=== PATIENT | male | born 1990 | race Caucasian/White ===

== ENCOUNTER 2019-11-20 11:58 | Day surgery (SDC) | payer OTHER ==
[2019-11-16 10:41] LABS: BASOPHILS % (AUTO) 0.3 % (0-1); EOSINOPHILS # (AUTO) 0.1 X10'3 (0-0.9); EOSINOPHILS % (AUTO) 1.2 % (0-6); LYMPHOCYTES # (AUTO) 1.9 X10'3 (1.1-4.8); MEAN CORPUSCULAR HEMOGLOBIN 29.4 PG (27.0-31.0); MEAN CORPUSCULAR HGB CONC 34.8 g/dL (33.0-36.5); MEAN CORPUSCULAR VOLUME 84.6 FL (78-98); MEAN PLATELET VOLUME 6.5 FL (7.4-10.4); MONOCYTES # (AUTO) 1.5 X10'3 (0-0.9); MONOCYTES % (AUTO) 14.5 % (2-12); NEUTROPHILS # (AUTO) 6.6 X10'3 (1.8-7.7); PRE OP HEMATOCRIT 30.4 % (42.0-52.0); PRE OP PLATELET COUNT 450 X10'3 (140-440); RED CELL DISTRIBUTION WIDTH 12.5 % (11.5-14.5)
[2019-11-16 10:43] LABS: PRE OP HEMOGLOBIN 10.6 g/dL (14.0-17.9)
[2019-11-16 10:54] LABS: ALBUMIN 3.1 G/DL (3.4-5.0); ALBUMIN/GLOBULIN RATIO 0.7 (1.1-1.5); ALKALINE PHOSPHATASE 65 IU/L (46-116); BLOOD UREA NITROGEN 15 MG/DL (7-18); CALCIUM 8.7 MG/DL (8.5-10.1); CHLORIDE 97 MMOL/L (99-107); CREATININE 0.94 MG/DL (0.60-1.10); PRE OP ANION GAP 10 (8-16); PRE OP BILIRUB, TOTAL 1.5 MG/DL (0.0-1.0); PRE OP GLUCOSE 110 MG/DL (70-104); PRE OP POTASSIUM 3.8 MMOL/L (3.4-5.1); PRE OP SODIUM 133 MMOL/L (135-145); TOTAL PROTEIN 7.6 G/DL (6.4-8.2); eGFR > 90 ML/MIN
[2019-11-16 10:56] LABS: PRE OP ALT 119 U/L (30-65); PRE OP AST 141 U/L (10-37)
[~2019-11-20] VITALS: Ht 182.9 cm; Wt 99.8 kg
[2019-11-20] VITALS (12 sets, daily range): BP systolic 114–135; BP diastolic 63–81
[~2019-11-20 11:58] MED LIST: ACET-2119 PO; HYDR-4383 PO; IBUP-1984 PO; ceFAZolin 2gm in dextrose, iso 50 ML IV ONE; famotidine 20mg tablet PO ONE; ringers solution, lacted 1,000 ML IV SCH
[2019-11-20] MEDS ORDERED: LIDOcaine 1% (10mg/ml) 2ml vial ONE (12:13)
[2019-11-20] MEDS ORDERED: sevoflurane 250ml liquid IH ONE (13:52)
[2019-11-20] MEDS ORDERED: cloNIDine hcl/PF 100mcg/ml inj ONE (13:56)
[2019-11-20] MEDS ORDERED: BUPIVAcaine/PF 2.5 mg/ml (0.25%) 30ml vial ONE (13:59)
[2019-11-20] MEDS ORDERED: midazolam 2 mg/2 ml injection ONE (14:18)
[2019-11-20] MEDS ORDERED: fentaNYL /PF 50mcg/ml 5ml ampule ONE (14:26)
[2019-11-20] MEDS ORDERED: dexamethasone sod phosphate 4mg/ml inj. ONE ×2 (14:28)
[2019-11-20] MEDS ORDERED: LIDOcaine 2% (20mg/ml) 5ml vial ONE (14:28)
[2019-11-20] MEDS ORDERED: ROPIVAcaine 0.5% (5mg/ml) 30ml vial ONE (14:28)
[2019-11-20] MEDS ORDERED: ondansetron/PF 4mg/2ml inj ONE (14:28)
[2019-11-20] MEDS ORDERED: propofol inj 20 ML IV ONE (14:28)
[2019-11-20] MEDS ORDERED: ringers solution, lacted 1,000 ML IV SCH (14:41)
[2019-11-20] MEDS ORDERED: morphine 2 MG/ML inj. syringe IV PRN (14:45)
[2019-11-20] MEDS ORDERED: labetalol 20mg/4ml (5mg/ml) syringe IV PRN (14:45)
[2019-11-20] MEDS ORDERED: meperidine/PF 25mg/ml syringe IV PRN ×3 (14:45)
[2019-11-20] MEDS ORDERED: acetaminophen 1,000mg/100ml IV 100 ML IV PRN (14:45)
[2019-11-20] MEDS ORDERED: ketorolac trometh. 30mg/ml inj. IV ONE (14:45)
[2019-11-20] MEDS ORDERED: proCHLORperazine 10 MG/2 ml inj IV PRN (14:45)
[2019-11-20] MEDS ORDERED: hydrALAZINE 20mg/ml inj. IV PRN (14:45)
[2019-11-20] MEDS ORDERED: morphine 4 MG/ML inj SYRINge IV PRN (14:45)
[2019-11-20] MEDS ORDERED: ondansetron/PF 4mg/2ml inj IV PRN (14:45)
--- NOTE | 2019-11-20 15:26 | NUR ---
RECEIVED FROM OR VIA [facility] ACCOMPANIED BY ANESTHESIOLOGIST DR JENKINS, REPORT GIVEN. PT DROWSY BUT AROUSES WITH NO COMPAINT OF PAIN AT THIS TIME. 20 GAUGE PIV L FA PATENT AND RUNNING LR AT 100 ML/HR.LLE DRESSING CDI, SKIN PINK AND WARM, BRISK CAP REFILL, PPULSES PRESENT EXCEPT L LE UNABLE TO PALPATE COVERED WITH SPLINT. VSS, ABD SOFT, PUGH, LLE ELEVATED AND ICE APPLIED, PT RESTING COMFORTABLY.
--- NOTE | 2019-11-20 17:06 | NUR ---
CONTINUATION OF PREVIOUS NOTE DISCHARGE INSTRUCTIONS GIVEN AND PT VERBALIZED UNDERSTANDING. TRANSPORTED VIA WHEELCHAIR TO SPOUSE IN PRIVATE VEHICLE TO HOME.
--- NOTE | 2019-11-20 17:06 | NUR ---
PT AWAKE AND ALERT WITH NO COMPLAINT OF PAIN AT THIS TIME. 20 GAUGE PIV L FA DC/D CATH TIP INTACT.LLE DRESSING CDI, SKIN PINK AND WARM, BRISK CAP REFILL, PPULSES PRESENT EXCEPT L LE UNABLE TO PALPATE COVERED WITH SPLINT. VSS, ABD SOFT, PUGH, PT TOLERATING FLUIDS, ABLE TO DRESS SELF AND TRANSFER TO WHEELCHAIR. DISCHARGE INSTRUCTONS BERTHA
== END 2019-11-20 17:06 | disposition home or self-care (01) ==
LOC: PAS 11:58
PROVIDERS: ATTEND Orthopaedic Surgery
DX: S82.852A Displaced trimalleolar fracture of left lower leg, initial encounter for closed fracture (principal); I10 Essential (primary) hypertension; F32.9 Major depressive disorder, single episode, unspecified; F41.9 Anxiety disorder, unspecified; M19.90 Unspecified osteoarthritis, unspecified site; G43.909 Migraine, unspecified, not intractable, without status migrainosus; Z98.890 Other specified postprocedural states; Z79.899 Other long term (current) drug therapy; Z88.5 Allergy status to narcotic agent; G89.18 Other acute postprocedural pain; Z20.828 Contact with and (suspected) exposure to other viral communicable diseases; Z72.89 Other problems related to lifestyle; V89.2XXA Person injured in unspecified motor-vehicle accident, traffic, initial encounter; Y93.89 Activity, other specified; Y92.89 Other specified places as the place of occurrence of the external cause; Y99.8 Other external cause status
CPT/HCPCS: 27814; 36415; 64445; 64447; 73600; 76000; 76942; 80053; 82948; 85025; 87635; A6222; C1713; J0735; J1100; J2001; J2250; J2405; J2704; J3010; J3370; J3490; A4215; A4618; A6449; A7000; J2795; J7120